=== PATIENT | female | born 1990 | race African-American/Black ===

== ENCOUNTER 2017-07-13 08:24 | Emergency (ER) | payer SELFPAY ==
[~2017-07-13] VITALS: Ht 152.4 cm; Wt 82.0 kg
[2017-07-13 08:54] VITALS: BP 123/75; PULSE 76; RESP 20; TEMP 98.5; O2SAT 99
[2017-07-13 09:10] LABS: BLOOD, URINE NEG (NEG); COMMENT (UR) CULT NOT INDICATED; CULTURE IF INDICATED CULT NOT INDICATED; GLUCOSE,URINE NEG (NEG); KETONE, URINE NEG (NEG); MUCUS URINE FEW /lpf (OCC); NITRITE,URINE NEG (NEG); SQUAMOUS EPITHELIAL CELL URINE 7 /hpf (0-5); URINE COLOR YELLOW (YELLW/STRAW)
[2017-07-13] MEDS ORDERED: SODIUM CHLOR 0.9% 1000 ML INJ 1,000 ML IV SCH (09:20)
[2017-07-13] MEDS ORDERED: SODIUM CHLORIDE 0.9% FLUSH 10 ML FLUSH IV FLUSH PRN (09:30)
[2017-07-13 09:57] LABS: AUTOMATED NEUTROPHIL # 2.3 TH/MM3 (1.8-7.7); BASOPHIL # 0.1 TH/MM3 (0-0.2); BASOPHIL % 1.1 % (0.0-2.0); EOSINOPHIL # 0.1 TH/MM3 (0-0.4); EOSINOPHIL % 1.7 % (0.0-4.0); HEMATOCRIT 42.5 % (35.0-46.0); HEMO FLAGS DIFF FINAL; LYMPH % 39.4 % (9.0-44.0); LYMPHOCYTE # 1.9 TH/MM3 (1.0-4.8); MEAN CELL VOLUME 88.2 FL (80.0-100.0); MEAN CORPUSCULAR HEMOGLOBIN 28.7 PG (27.0-34.0); MEAN CORPUSCULAR HGB CONC 32.5 % (32.0-36.0); MONO % 10.1 % (0.0-8.0); NEUT % 47.7 % (16.0-70.0); PLATELET COUNT 242 TH/MM3 (150-450); RED BLOOD COUNT 4.81 MIL/MM3 (4.00-5.30); RED CELL DISTRIBUTION WIDTH 12.8 % (11.6-17.2); WHITE BLOOD COUNT 4.8 TH/MM3 (4.0-11.0)
[2017-07-13 10:08] LABS: BICARBONATE 26.1 MEQ/L (21.0-32.0); POTASSIUM 4.2 MEQ/L (3.5-5.1)
--- NOTE | 2017-07-13 11:37 | PD ---
HPI Chief Complaint: Complaint Time Seen by Provider: 11:09 Travel History International Travel<30 days: No Contact w/Intl Traveler<30days: No Traveled to known affect area: No History of Present Illness HPI 27-year-old female that presents to the ED for evaluation of urinary symptoms and back pain. Per patient she's had foul-smelling urine and white discharge from vagina for the past couple days. Per patient she developed back pain since as well. She denies any injury to her back. No STD or possibility of . She states that the discharge is white and foul-smelling. No allergies to medication. Has not seen anybody for this. Has not taken anything for this. No recent travel. No chest pain or shortness of breath. Per patient the discomfort on the back is 4 out of 10. States having some dysuria and polyuria PFSH Past Medical History ?: Not LMP: 07/01/17 Social History Alcohol Use: No Tobacco Use: No Substance Use: No Allergies-Medications (Allergen,Severity, Reaction): Coded Allergies: No Known Allergies (Unverified , 07/13/17) Reported Meds & Prescriptions Reported Meds & Active Scripts Active No Active Prescriptions or Reported Medications Review of Systems Except as stated in HPI: all other systems reviewed are Neg Physical Exam Narrative GENERAL: SKIN: Warm and dry. HEAD: Atraumatic. Normocephalic. EYES: Pupils equal and round. No scleral icterus. No injection or drainage. ENT: No nasal bleeding or discharge. Mucous membranes pink and moist. Tongue is midline. No uvula deviation. NECK: Trachea midline. No JVD. CARDIOVASCULAR: Regular rate and rhythm. RESPIRATORY: No accessory muscle use. Clear to auscultation. Breath sounds equal bilaterally. GASTROINTESTINAL: Abdomen soft, non-tender, nondistended. Hepatic and splenic margins not palpable. Pelvic exam: Patient has whitish vaginal discharge coming out of the vagina. Foul-smelling. No obvious cervical motion tenderness. No adnexal tenderness. No masses or deformities noted. Labia appear to be intact. No lymphadenopathy noted. MUSCULOSKELETAL: Extremities without clubbing, cyanosis, or edema. No obvious deformities. Full range of motion of the upper and lower extremities bilaterally. 2+ pulses bilaterally. NEUROLOGICAL: Awake and alert. No obvious cranial nerve deficits. Motor grossly within normal limits. Five out of 5 muscle strength in the arms and legs. Normal speech. PSYCHIATRIC: Appropriate mood and affect; insight and judgment normal. Data Data Last Documented VS Vital Signs Date Time Temp Pulse Resp B/P (MAP) Pulse Ox O2 Delivery O2 Flow Rate FiO2 07/13/17 08:54 98.5 76 20 123/75 (91) 99 Orders Orders Urinalysis - C+S If Indicated (07/13/17 08:44) Ed Urine Pregnancytest Poc (07/13/17 08:44) Basic Metabolic Panel (Bmp) (07/13/17 09:20) Complete Blood Count With Diff (07/13/17 09:20) Sodium Chlor 0.9% 1000 Ml Inj (Ns 1000 M (07/13/17 09:20) Sodium Chloride 0.9% Flush (Ns Flush) (07/13/17 09:30) Gc And Chlamydia Pcr (07/13/17 09:20) Wet Prep Profile (07/13/17 09:20) Metronidazole (Flagyl) (07/13/17 12:15) Labs Laboratory Tests Test 07/13/17 08:45 07/13/17 09:40 07/13/17 11:25 Urine Color YELLOW Urine Turbidity HAZY Urine pH 6.0 Urine Specific [place] 1.024 Urine Protein NEG mg/dL Urine Glucose (UA) NEG mg/dL Urine Ketones NEG mg/dL Urine Occult Blood NEG Urine Nitrite NEG Urine Bilirubin NEG Urine Urobilinogen 2.0 MG/DL Urine Leukocyte Esterase NEG Urine RBC 1 /hpf Urine WBC 1 /hpf Urine Squamous Epithelial Cells 7 /hpf Urine Mucus FEW /lpf Microscopic Urinalysis Comment CULT NOT INDICATED White Blood Count 4.8 TH/MM3 Red Blood Count 4.81 MIL/MM3 Hemoglobin 13.8 GM/DL Hematocrit 42.5 % Mean Corpuscular Volume 88.2 FL Mean Corpuscular Hemoglobin 28.7 PG Mean Corpuscular Hemoglobin Concent 32.5 % Red Cell Distribution Width 12.8 % Platelet Count 242 TH/MM3 Mean Platelet Volume 7.5 FL Neutrophils (%) (Auto) 47.7 % Lymphocytes (%) (Auto) 39.4 % Monocytes (%) (Auto) 10.1 % Eosinophils (%) (Auto) 1.7 % Basophils (%) (Auto) 1.1 % Neutrophils # (Auto) 2.3 TH/MM3 Lymphocytes # (Auto) 1.9 TH/MM3 Monocytes # (Auto) 0.5 TH/MM3 Eosinophils # (Auto) 0.1 TH/MM3 Basophils # (Auto) 0.1 TH/MM3 CBC Comment DIFF FINAL Differential Comment Blood Urea Nitrogen 8 MG/DL Creatinine 0.90 MG/DL Random Glucose 85 MG/DL Calcium Level 8.9 MG/DL Sodium Level 138 MEQ/L Potassium Level 4.2 MEQ/L Chloride Level 107 MEQ/L Carbon Dioxide Level 26.1 MEQ/L Anion Gap 5 MEQ/L Estimat Glomerular Filtration Rate 92 ML/MIN Clue Cells (Wet Prep) PRESENT Vaginal Trichomonas (Wet Prep) NONE SEEN Vaginal Yeast (Wet Prep) NONE SEEN MDM Medical Decision Making Medical Screen Exam Complete: Yes Emergency Medical Condition: Yes Medical Record Reviewed: Yes Interpretation(s) wet prep positive for clue cells CBC & BMP Diagram 07/13/17 09:40 Calcium Level 8.9 UA negative Differential Diagnosis Vaginal discharge versus STD versus UTI versus back pain versus pyelonephritis Narrative Course 27-year-old female that presents to the ED for evaluation of back pain and possible urinary symptoms. Patient was properly examined and was found to have signs and symptoms consistent appears to be vaginitis. Unclear etiology at this time. Labs were drawn. Labs were essentially unremarkable other than for positive clue cells. Patient was treated for bacterial vaginosis with Flagyl here. Given prescription for it. Told to follow with PCP. See ED worsening symptoms. No sex for 2 weeks. Diagnosis Primary Impression: Bacterial vaginosis Patient Instructions: General Instructions Additional Instructions: Take medication as prescribed. No sex for 2 weeks or until better. Use protection. Motrin or Tylenol for pain. Follow with PCP. See ED for any worsening symptoms. Med/Other Pt SpecificInfo: Prescription(s) given Scripts Metronidazole (Flagyl) 500 Mg Tab 500 MG PO BID for Infection, #7 TAB 0 Refills Prov: Vicki Combs DO 07/13/17 Disposition: 01 DISCHARGE HOME Condition: Stable Mike Ferguson Jul 13, 2017 11:37
[2017-07-13] MEDS ORDERED: METR-1 PO (12:09)
[2017-07-13] MEDS ORDERED: metroNIDAZOLE 500 MG TAB PO ONE (12:15)
[2017-07-13 13:55] LABS: CHLAMYDIA PCR NOT DETECTED (NOT DETECT); NEISSERIA PCR NOT DETECTED (NOT DETECT)
== END 2017-07-13 12:20 | disposition home or self-care (01) ==
LOC: NEPC 08:24
DX: N76.0 Acute vaginitis (principal)
CPT/HCPCS: 80048; 81001; 84703; 85025; 87210; 87491; 87591; 96360; 99283; J7030